=== PATIENT | female | born 1980 | race Caucasian/White ===

== ENCOUNTER 2021-03-25 16:11 | Emergency (ER) | payer SELFPAY ==
--- NOTE | ~2021-03-25 | XR_ITS ---
XR hand RT 2V DATE: 03/25/2021 17:04 INDICATION: Pain, swelling, erythema at second and third metacarpophalangeal areas. Calcified. TECHNIQUE: AP and lateral views COMPARISON: None FINDINGS: No radiopaque foreign body is detected. No subcutaneous emphysema. No fracture, dislocation, periosteal reaction or bone destruction. IMPRESSION: No significant abnormality Reviewed, dictated and finalized at location A. IMPRESSION: No significant abnormality
[2021-03-25 16:16] VITALS: BP 119/69; PULSE 85; RESP 14; TEMP 36.6; O2SAT 99
--- NOTE | 2021-03-25 16:58 | ED.WOUNDLAC ---
HPI - Wound/Laceration General Chief Complaint: Wound/Laceration Stated Complaint: cat bite Time Seen by Provider: 03/25/21 16:19 Source: patient History of Present Illness HPI narrative: Patient presents with cat bite patient reports she was bit by her cat yesterday she was trying to do some training and pushed the cat too far got angry and bit her. Reports her cat is up-to-date on immunizations. Reports she is noted swelling and redness that is getting worse so she went to urgent care to be evaluated was referred to the ER. Pain is achy, constant, worse with trying to move her finger. Primary area of pain is over the second MCP joint. She denies fevers, cough, congestion, focal numbness or weakness. She reports she has been on Augmentin for a sinus issue and has had about 4-5 days of antibiotics Related Data Home Medications Medication Instructions Recorded Confirmed topiramate 100 mg PO DAILY 03/25/21 03/25/21 Allergies Allergy/AdvReac Type Severity Reaction Status Date / Time No Known Allergies Allergy Verified 03/25/21 16:17 Review of Systems Review of Systems: CONSTITUTIONAL: Denies fever, chills, or sweats. EYES: Denies visual changes, redness, or discharge. ENT: Denies rhinorrhea, congestion, sore throat, or otalgia. CARDIOVASCULAR: Denies chest pain, palpitations, or edema. RESPIRATORY: Denies cough or dyspnea. GASTROINTESTINAL: Denies abdominal pain, nausea, vomiting, or diarrhea. GENITOURINARY: Denies dysuria or hematuria. SKIN: Denies rash or itching. MUSCULOSKELETAL: Denies back pain, joint pain, or myalgia. NEUROLOGIC: Denies headache, numbness, dizziness, or weakness. PSYCHIATRIC: Denies anxiety or depression. All systems reviewed & are unremarkable except as noted in HPI and below PMFSH Past Medical History Medical History (Updated 03/25/21 @ 17:02 by Fausto Treadwell MD) IBS (irritable bowel syndrome) Social History Social History (Updated 03/25/21 @ 17:02 by Fausto Treadwell MD) Substance use: never Exam Narrative: GENERAL: Well-appearing, well-nourished, and in no acute distress. HEAD: Normocephalic, atraumatic. EYES: PERRLA and EOMI. ENT: Nares clear, no rhinorrhea or epistaxis. Mucous membranes moist. NECK: Supple. No masses. No JVD EXTREMITIES: N erythema edema and warmth over the second MCP joint on the right hand. There is limited range of motion due to edema. There is no significant tenderness with extension of the second digit there is a superficial injuries with scant dried blood. There is no purulent drainage. There is a small superficial wound on the distal aspect of the the left second digit of the left upper extremity with small amount of erythema and edema. there are multiple other superficial wounds on the hands and forearms without significant erythema or edema SKIN: Warm, dry, no rash. NEURO: No focal deficits. Alert and oriented x3. PSYCH: Normal mood and affect. Course Reevaluation(s) Reevaluation #1: Results and plan reviewed with patient. Patient comfortable outpatient plan. Date: 03/25/21 Time: 17:40 Vital Signs Vital signs: Vital Signs Temperature 36.6 C 03/25/21 16:16 Pulse Rate 85 03/25/21 16:16 Respiratory Rate 14 03/25/21 16:16 Blood Pressure 119/69 03/25/21 16:16 Pulse Oximetry 99 03/25/21 16:16 Temperature 36.6 C 03/25/21 16:16 Pulse Rate 85 03/25/21 16:16 Respiratory Rate 14 03/25/21 16:16 Blood Pressure 119/69 03/25/21 16:16 Pulse Oximetry 99 03/25/21 16:16 MDM - Wound/Laceration MDM Narrative Medical decision making narrative: H&P as above, vss, pt looks clinically well, exam superficial wounds with good wound edge approximation, imaging clinically unremarkable, additional labs/img considered, symptomatic relief available as needed, on reevaluation pt continues to looks clinically well. Suspect cellulitis, dns abscess, fracture, necrotizing soft tissue infection, flexor tenosynovitis patient had no pa
[2021-03-25] MEDS: TETANUS,DIPHTHERIA,AC PERTUSSIS ADULT (0.5 ML) BOOSTRIX IM (17:16)
== END 2021-03-25 17:49 | disposition home or self-care (01) ==
PROVIDERS: Emergency Provider Emergency Medicine
DX: S61.451A Open bite of right hand, initial encounter (principal); L03.113 Cellulitis of right upper limb; W55.01XA Bitten by cat, initial encounter; Z23 Encounter for immunization
CPT/HCPCS: 73120; 90471; 90715; 99283